=== PATIENT | female | born 1960 | race Caucasian/White ===

== ENCOUNTER → 2017-01-27 | Outpatient (CLI) | payer BC ==
[~2017-01-27] MED LIST: NS 100 ML IV 100 ML IV ONE
[2017-01-27 09:57] LABS: CREATININE 1.08 mg/dL (0.55-1.02)
--- NOTE | 2017-01-27 14:30 | CT ---
HISTORY: Right lower quadrant abdominal pain Study: CT abdomen and pelvis with contrast Comparison: None Technique: Multiple axial images of the abdomen and pelvis were obtained with IV contrast. Oral contrast was ad ministered. Dose reduction techniques including Automated Exposure Control (AEC) and adjustment of mA and kV were utilized. Findings: The visualized portions of the lung bases are unremarkable. The liver, spleen, pancreas, kidneys, an d adrenal glands are unremarkable in their CT appearance. The gallbladder is normal. No renal calculi or obstructive uropathy. No free intraperitoneal air. No evidence of intestinal obstruction or inflammation. Oral contrast truman ches the distal colon. The appendix is normal. No free fluid identified. There is a chronic fracture of T12 post vertebroplasty and mild wedging of the T11 vertebral body. Th e vascular structures are within normal limits for age. No pathologically enlarged lymph nodes are id entified. Unremarkable appearance of the uterus and urinary bladder. IMPRESSION: 1. No acute abnormality identified. Normal appendix. 2. Chronic T12 compression fracture. Reported By:
--- NOTE | 2017-01-27 17:20 | MG ---
Examination: Bilateral screening mammogram. Clinical history: Routine screening. Technique: Digital CC and MLO views of both breasts were obtained. Computer aided detection analysis was performed and used during the interpretation. Comparison: 11/02/2012. Findings: The breasts are composed of scattered fibroglandular densities. Benign-appearing calcifications are n oted in the right breast. No suspicious mass, area of architectural distortion or suspicious cluster of microcalcifications is noted. Impression: 1. No mammographic evidence of malignancy. BI-RADS category 2-benign findings. Recommend routine annual screening mammogram. Diagnostic CAD was utilized and reviewed. * 0 (ZERO) - ASSESSMENT INCOMPLETE; ADDITIONAL IMAGING IS NEEDED. * 0C - ASSESSMENT INCOMPLETE, NEEDS ADDITIONAL IMAGING EVALUATION AND/OR PRIOR MAMMOGRAMS FOR COMPARI SON. * 1/1 (ONE) - NEGATIVE. * 2/II (TWO) - BENIGN FINDINGS. * 3/III (THREE) - PROBABLY BENIGN FINDING; SHORT INTERVAL FOLLOW-UP SUGGESTED. * 4/IV (FOUR) - SUSPICIOUS ABNORMALITY; BIOPSY SHOULD BE CONSIDERED. * 5/V - HIGHLY SUSPICIOUS OF MALIGNANCY; BIOPSY SHOULD BE PERFORMED. * 6/ - KNOWN BIOPSY PROVEN MALIGNANCY-APPROPRIATE ACTION SHOULD BE TAKEN. A NEGATIVE X-RAY REPORT SHOULD NOT DELAY BIOPSY IF A DOMINANT OR CLINICALLY SUSPICIOUS MASS IS PRESENT; 4 TO 8 PERCENT OF CANCERS ARE NOT IDENTIFIED BY X-RAY. A NEGATIVE REPORT MAY REINFORCE THE CLINICAL IMPRESSION. ADENOSIS AND DENSE BREASTS MAY OBSCURE AN UNDERLYING NEOPLASM. Reported By:
== END | disposition home or self-care (01) ==
LOC: RAD 09:06
PROVIDERS: ATTEND Internal Medicine
DX: R10.31 Right lower quadrant pain (principal); R10.84 Generalized abdominal pain; Z12.31 Encounter for screening mammogram for malignant neoplasm of breast
CPT/HCPCS: 36415; 74177; 77067; 82565; 84520; A4222

== ENCOUNTER 2017-08-01 17:57 | Emergency (ER) | payer BC ==
[2017-08-01 18:16] VITALS: BP 139/82; BMI 24.4
[2017-08-01] MEDS ORDERED: NORFLEX INJ IM ONE (19:02)
[2017-08-01] MEDS ORDERED: TORADOL 60 MG VIAL IM ONE (19:02)
--- NOTE | 2017-08-01 19:03 | DR.EXTPAIN ---
HPI - Time seen Time seen: 19:00 - PCP Primary Care Physician: DONNA - Complaint/Symptoms Chief Complaint:: PT C/O RT RIB AND SIDE PAIN. PT STATES SHE FELL TRYING TO HELP HER MOTHER. PT STATES THE PAIN IS GETTING WORSE. - Nurses notes reviewed Nurses Notes Review: Yes - Source History Provided: Patient - Mode of arrival Mode of Arrival: Ambulatory - Timing Onset of Chief Complaint: 07/30/17 - Context History of: None - Associated signs and symptoms Associated Signs and Symptoms: Pain PMH - PMH Past Medical History: Yes Past Medical History: GERD Past Surgical History: Yes Surgical History: Ortho Surgery - Family History History of Family Medical Conditions: No - Social History Does any household member use tobacco: No Alcohol Use: None Do you use any recreational Drugs:: No Lives With: Family Lives Where: Home - infectious screening In the last 2 months have you had wt loss of >10#?: NO Have you had fever, night sweats or hemotysis?: No Have you traveled outside the country in the last 6 months?: No Isolation: Standard ROS - Review of Systems Constitutional: No Symptoms Reported Eyes: No Symptoms Reported ENTM: No Symptoms Reported Respiratoy: No Symptoms Reported Cardiovascular: Chest Pain Gastrointestinal/Abdominal: No Symptoms Reported Genitourinary: Dysuria, Frequency. negative: Hematuria Neurological: No Symptoms Reported Musculoskeletal: No Symptoms Reported Integumentary: No Symptoms Reported Hematologic/Lymphatic: No Symptoms Reported All Other Systems: Reviewed and Negative PE - Vital Signs Vitals: Temperature 98.0 F Pulse Rate 98 Respiratory Rate 18 Blood Pressure 139/82 O2 Sat by Pulse Oximetry 98 - General Limitations: No Limitations General Appearance: Alert - Head Head Exam: Normal Inspection - Eyes Eye exam: Normal Appearance - ENT ENT Exam: Normal External Ear Exam - Neck Neck Exam: Trachea Midline - Chest Chest Inspection: Symmetric Chest Wall Rise - Respiratory Respiratory Exam: Normal Lung Sounds Bilat, Chest Wall Tenderness (RT LOWER RIB) Respiratory Exam: Bilateral Clear to Auscultation - Cardiovascular Cardiovascular Exam: Regular Rate, Normal Rhythm, Normal Heart Sounds - Abdominal Exam Abdominal Exam: Normal Bowel Sounds, Soft. negative: Tenderness - Extremities Extremities Exam: Normal Inspection - Lower Extremities Neurovascular/Tendon Exam: Normal Capillary Refill Gait Exam: Observed and Normal - Back Back Exam: Normal Inspection - Neurological Neurological Exam: Alert, Oriented X3 - Psychiatric Psychiatric Exam: Normal Affect, Normal Mood - Skin Skin Exam: Erythema MDM - Differential Diagnosis Differential Diagnosis: Contusion, Fracture, Sprain Course - Treatment Treatment: SEE ORDERS. IM TORADOL AND NORFLEX, PAIN IMPROVING. - Reevaluation 1st: Improved (PAIN IMPROVING.) - Education/Counseling Education/Counseling: Patient, Family, Education Educated On: Diagnosis, Needs for Follow Up ROR - Labs Reviewed Laboratory Results Reviewed?: Yes Laboratory: 08/01/17 19:55 Urine,Clean Catch Urine Culture - Preliminary Specimen Type Clean catch urine 08/01/17 19:55 Urine Color [place] (YELLOW) 08/01/17 19:55 Urine Appearance Clear (CLEAR) 08/01/17 19:55 Urine pH Cancelled 08/01/17 19:55 Ur Specific [place] Cancelled 08/01/17 19:55 Urine Protein Cancelled 08/01/17 19:55 Urine Glucose (UA) Cancelled 08/01/17 19:55 Urine Ketones Cancelled 08/01/17 19:55 Urine Occult Blood Cancelled 08/01/17 19:55 Urine Nitrite Cancelled 08/01/17 19:55 Urine Bilirubin Cancelled 08/01/17 19:55 Urine Urobilinogen Cancelled 08/01/17 19:55 Ur Leukocyte Esterase Cancelled 08/01/17 19:55 Urine RBC Rare /HPF (NONE SEEN) 08/01/17 19:55 Urine WBC 20-30 /HPF (NONE SEEN) 08/01/17 19:55 Ur Squamous Epith Cells Few /HPF (NEGATIVE) 08/01/17 19:55 Ur Transition Epith Cell Cancelled 08/01/17 19:55 Ur Renal Epithelial Cell Cancelled 08/01/17 19:55 Calcium Oxalate Crystal Cancelled 08/01/17 19:55 Cystine Crystals Cancelled 08/01/17 19:55 Uric Acid Crystals Cancelled 08/01/17 19:55 Triple Phos Crystals Cancelled 08/01/17 19:55 Tyrosine Crystals Cancelled 08/01/17 19:55 Other Crystals Cancelled 08/01/17 19:55 Amorphous Sediment Cancelled 08/01/17 19:55 Urine Bacteria Trace /HPF (Negative) 08/01/17 19:55 Hyaline Casts Cancelled 08/01/17 19:55 Granular Casts Cancelled 08/01/17 19:55 Fine Granular Casts Cancelled 08/01/17 19:55 Coarse Granular Casts Cancelled 08/01/17 19:55 WBC Casts Cancelled 08/01/17 19:55 Other Casts Cancelled 08/01/17 19:55 Urine Mucus Cancelled 08/01/17 19:55 Urine Trichomonas Cancelled 08/01/17 19:55 Urine Yeast Cancelled 08/01/17 19:55 Urine Sperm Cancelled 08/01/17 19:55 Ur Culture Indicated? Yes/culture set up 08/01/17 19:55 Micro UA Comment Unable to perform (-) 08/01/17 19:55 - XRAY XRAY Interpreted by: Radiologist XRAY Findings: REPORT DISCUSS WITH PATIENT. - Diagnosis Discharge Problem: Rib contusion Qualifiers: Encounter type: initial encounter Laterality: right Qualified Code(s): S20.211A - Contusion of right front wall of thorax, initial encounter UTI (urinary tract infection) Qualifiers: Urinary tract infection type: site unspecified Hematuria presence: without hematuria Qualified Code(s): N39.0 - Urinary tract infection, site not specified - Discharge Plan Disposition: 01 HOME, SELF-CARE Condition: Stable Prescriptions: Ciprofloxacin HCl [CIPRO 500 MG TAB *] 500 mg PO Q12H #20 tab Cyclobenzaprine HCl [FLEXERIL 10 MG *] 10 mg PO TID #20 tab Ibuprofen [MOTRIN TAB 600 MG *] 600 mg PO TID PRN #30 tab PRN Reason: Pain/Inflammation - Follow ups/Referrals Follow ups/Referrals: Roshan Newman [Primary Care Provider] - 3 days - Instructions Instructions: Urinary Tract Infection, Adult, Rib Contusion Additional Instructions: RETURN TO ED IF WORSE.
[2017-08-01] MEDS ORDERED: TORADOL 60 MG VIAL ONE (19:42)
[2017-08-01] MEDS ORDERED: NORFLEX INJ ONE (19:42)
--- NOTE | 2017-08-01 20:06 | RAD ---
Right rib series, five views Indication: Fall with right-sided posterior rib pain Comparison: None Findings: No displaced right-sided rib fractures are identified. Remote T12 compression fracture with prior kyphoplasty noted. Heart size is normal and the lungs are clear without pneumothorax. Impression: No displaced rib fracture or acute chest process. Reported By:
[2017-08-01 20:21] LABS: COLOR,URINE ORANGE (YELLOW)
[2017-08-01 20:22] LABS: APPEARANCE,URINE CLEAR (CLEAR); BACTERIA,URINE Trace /HPF (Negative); RBC,URINE RARE /HPF (NONE SEEN); SQUAMOUS EPITHELIAL CELL,UR FEW /HPF (NEGATIVE)
[2017-08-01] MEDS ORDERED: CIPRO TAB 500 MG PO ONE ×2 (20:55→20:59)
== END 2017-08-01 21:17 | disposition home or self-care (01) ==
LOC: ER 18:22
DX: S20.211A Contusion of right front wall of thorax, initial encounter (principal); N39.0 Urinary tract infection, site not specified; B96.29 Other Escherichia coli [E. coli] as the cause of diseases classified elsewhere; W19.XXXA Unspecified fall, initial encounter; Y92.9 Unspecified place or not applicable
CPT/HCPCS: 71111; 81015; 87086; 87088; 87186; 96372; 99283; 99284; J1885; J2360